=== PATIENT | male | born 2005 | race Caucasian/White ===

== ENCOUNTER 2024-12-12 15:26 | Outpatient (AMB) | payer OTHER, MEDICAID, SELFPAY ==
[2024-12-12 15:30] VITALS: BMI 23.2
--- NOTE | 2024-12-12 15:30 | MHC.OFFVIS ---
Vital Signs 12/12/24 15:30 Height 5 ft 4 in Weight 135 lb 5.821 oz BMI 23.2 BP not taken reason Patient Refused Intake Visit Reasons: Nausea and Vomiting Intake Note: Vincenzo presents in office today for nausea and vomiting. CC: Patient reports that he started having N/V in November of 2018. The first episode of vomiting happened at a restaurant when he started vomiting. Per his mother when they go out to eat sometimes chicken fingers can make him nauseous. Per his mother about once a year PT have an accident and stools are usually loose. Last time he vomited was September this year, after he began taking Pantoprazole he stopped vomiting. Integration Aide Required: No Accompanied by: Mother Allergies mite-Dermatophagoides farinae, sonia (dust mite - [place]) Allergy (Unknown, Verified 12/12/24 15:47) Unknown HPI HPI Nausea and Vomiting: Details: 19-year-old male here for initial evaluation of nausea and vomiting. He is referred by [facility]. PMX Autism Food allergy Environmental allergies * SURGICAL HISTORY * ALLERGIES * MEDITECH LABS: none TODAY'S VISIT His motehr is my pt as well. [facility] Medical History (Updated 12/12/24 @ 15:53 by KATHY Hightower) Encounter for screening for COVID-19 Surgical History (Updated 12/12/24 @ 15:44 by SY Doty) History of lingual frenulectomy H/O myringotomy Social History (Updated 12/12/24 @ 15:45 by SY Doty) Alcohol intake: never Patient Tobacco Use Status: Never used Tobacco Review of Systems Const Denies fatigue, Denies fever(s), Denies night sweats, Denies poor appetite and Denies weight loss ENT Reports Normal hearing present, Denies dental pain, Denies dysphagia, Denies hearing loss, Denies mouth pain, Denies odynophagia, Denies throat swelling, Denies tongue swelling and Reports other (Dentition adequate) Card Reports no additional complaints Resp Reports no additional complaints GI Details: Denies abdominal pain, Denies melena, Denies bloating, Denies hematochezia, Denies constipation, Denies GI cramping, Denies dysphagia, Denies excessive flatus, Denies early satiety, Reports heartburn, Reports diarrhea, Reports nausea, Denies odynophagia, Reports vomiting and Denies hematemesis Skin/Breast Denies pruritus, Denies lesions, Denies rash and Denies jaundice Neuro Reports Normal hearing present and Denies Abnormal speech present Endo Denies fatigue Aller/Immun Denies throat swelling and Denies tongue swelling Physical Exam Vital Signs: BMI result Body Mass Index 23.2 Const General: cooperative, no acute distress, well developed and well groomed Nutritional Appearance: average body habitus and well nourished Orientation/consciousness: oriented to person, oriented to place and oriented to time Limitations: behavioral limitations, No language barrier and other limitations HEENT Head: Yes normocephalic and Yes atraumatic Eyes General: appearance normal, both eyes and all related structures Pupils: Equal, round and reactive pupils present Neck Neck: Yes normal visual inspection and Yes no lymphadenopathy Thyroid: Thyroid normal Resp Effort & Inspection: normal respiratory effort and able to speak in complete sentences Auscultation: clear to auscultation bilaterally Cardio Rate: regular rate Rhythm: regular rhythm Heart sounds: Normal, physiologic split S2 sound present Peripheral pulses: radial pulses present and posterior tibial pulses present GI Inspection: No distended and No Abdominal panniculus present Palpation (GI): Soft to palpation, nontender, no guarding, not rigid and No hepatosplenomegaly present Percussion: Yes normal to percussion Auscultation: normal bowel sounds Rectal Exam - Male: Yes deferred Skin General skin exam: no rashes or lesions noted, turgor normal, skin not dry, no jaundice, No spider nevi and no striae Rashes: no rashes Nails: normal Neuro General: oriented to person, oriented to place and oriented to time Cranial nerves: Yes Equal, round and reactive pupils present and Yes Normal hearing present Speech: No Abnormal speech present Extrem General: Yes normal to inspection, No clubbing, No cyanosis and No edema Psych Appearance: grossly normal and well kempt Mental Status: other Speech and movement: Slowed speech present (Psych) Affect: normal affect Attitude: cooperative Thought process: not confabulating and Impoverished thought process present Thought content: Normal thought content present Insight: Poor insight present (Psych) Judgement: Poor judgement present (Psych) Assessment & Plan Assessment & Plan (1) GERD (gastroesophageal reflux disease): Code(s): K21.9 - Gastro-esophageal reflux disease without esophagitis Category: Medical (2) Nausea and vomiting: Code(s): R11.2 - Nausea with vomiting, unspecified Category: Medical Plan - The patient is a 19-year-old male presenting with gastrointestinal symptoms, specifically nausea and vomiting. - Episodes began on December 12, 2018, recurring every three to four months with severe nausea and vomiting. - Heartburn and reflux symptoms often accompany nausea. - Treatment with pantoprazole commenced two months ago with noted improvement. - Episodes of diarrhea occur occasionally, sometimes leading to anal discomfort. - Childhood surgeries include a frenectomy and ear tube placement due to frequent ear infections. The patient does not follow a specific diet and has no identified food allergies except for a reaction to chicken tenders from certain restaurants. Intake includes occasional fast food, preferring [employer] chicken nuggets, and swaps sugary drinks for water when possible. Pantoprazole is taken daily to manage symptoms, with no current multivitamin or supplement use. Nutritional challenges include avoiding specific chicken preparations that trigger gastrointestinal symptoms. It is good that he is improved on pantoprazole. The only thing I would add to this right now is an H pylori stool antigen test to see if this is a reversible cause of the underlying problem. Return office visit in 8 weeks Orders: Orders H pylori Ag Stool 12/12/24 K21.9 - Gastro-esophageal reflux disease without esophagitis, R11.2 - Nausea with vomiting, unspecified Medications: New pantoprazole 20 mg PO DAILY 30 tabs 6RF K21.9 - Gastro-esophageal reflux disease without esophagitis, R11.2 - Nausea with vomiting, unspecified Coding Level of Care Code New Pt Level 3 (84179) Diagnoses GERD (gastroesophageal reflux disease) K21.9 Nausea and vomiting R11.2
--- OUTSIDE RECORDS SUMMARY | 2024-12-12 15:30 | XMS_ITS | Clinical Summary ---
Author Organization [facility] Address [address] [place] [address] Phone Care Team Providers Care Hair Clipper Power Name Role Phone Alex Womack MD Primary Care Provider [phone] Allergies Active Allergy Reactions Criticality Noted Date Comments Environmental 09/06/2018 seasonal Medications fexofenadine ODT 30 MG disintegrating tablet Take 30 mg by mouth daily. Active Active Problems Problem Noted Date Diagnosed Date Allergy to food 12/11/2019 Overview (06/19/2022): Suspected, but etiology unclear. Refer to [facility] for further evaluation. Mom suspects something in chicken nuggets - has happened 4 times in different restaurants (but is fine with some other nuggets, ex. [employer]) Has Epi pen but has not needed it. Assessment & Plan (07/17/2023 10:12 AM EDT): Unsure which-has some sensitivities to foods; has seen financial health counselor in the past; recommended a follow up appointment with them Dental caries 12/02/2019 Overview (12/02/2019): 09/2018- [facility] under [place] [employer] Assessment & Plan (07/17/2023 10:12 AM EDT): Still sees dentist-last seen a couple of weeks ago Assessment & Plan (12/03/2019 1:51 PM EDT): Needs to reschedule this years appointment at [facility] cancelled d/t COVID Autism 09/06/2018 Overview (11/06/2019): 11/06/2019 Chart Review: As of last well visit 08/2017 'In Autism class at [facility]. Mom declines referral to Care Coordinators to look into potential services for pt' Assessment & Plan (07/17/2023 10:32 AM EDT): In [employer] in [place] for vocational assistance after completing [employer] [employer]. Had an IEP while in school. Referral placed for [facility] to call mom to see if she should get guardianship or not--mom says she was told it's not beneficial but I think it would be important to revisit that and consider an updated neuropsych evaluation Assessment & Plan (06/19/2022 2:34 PM EDT): Has IEP, in separate classroom Will go to [employer] after 12th grade Does [employer] [place] during the [place] Assessment & Plan (12/06/2019 10:00 AM EDT): No longer getting any in- home ASD supports. Has been in school since 10/2018. Explained RN CC role to mother and she is accepting of offer of outreach call to ensure Vincenzo has access to any and all appropriate current and future supports for his ASD. Resolved Problems Problem Noted Date Diagnosed Date Resolved Date Torticollis 12/06/2019 07/17/2023 Overview (12/06/2019): Recurrent, spring episodes of torticollis, particularly severe Spring 2019. Assessment & Plan (12/06/2019 9:56 AM EDT): Relationship to seasonal allergies suggested but unclear. Refer to [facility] Acne vulgaris 09/06/2018 07/17/2023 Assessment & Plan (12/03/2019 1:49 PM EDT): Much improved recently, with no need for daily treatment.Suggest 10% BP PRN Gastroesophageal reflux disease 09/21/2013 12/02/2019 Encounters Date Type Department Care Team Description 10/20/2024 Telephone [facility] - [address] [place] [address] Alex Womack MD Forms/questionnaires 10/09/2024 Telephone [facility] - [place] [address] [place] [address] Alex Womack MD Adult [facility]- [facility] 09/11/2024 Telephone [facility] - [place] [address] [place] [address] Alex Womack MD medical records from Last 3 Months Immunizations Immunization Administration Dates Next Due COVID-19 Pfizer, monovalent, 12+ years 2 DTaP / Hep B / IPV 01/11/2005,2004, 005 DTaP 5 06/30/2008,02/07/2006 H1N1 01/12/2009 HPV Vaccine 9 Valent 07/17/2023 Hep A, ped/adol 06/30/2008,02/07/2006 Hep B, ped/adol 2004 Hib (HbOC) 01/11/2005,2004,2004 Hib (PRP-T) 10/12/2005 IPV 06/30/2008 Influenza Split 12/21/2011 Influenza, injectable, quadrivalent 12/16/2013 Influenza, injectable, quadr ivalent, preservative free 12/03/2019,10/13/2014 Influenza, injectable, trivalent 009,01/21/2008,02/07/2006,01/11 MMR 07/27/2009,06/26/2005 Meningococcal B Trumenba 07/17/2023,06/19/2022 Meningococcal Conj (Menactra) MCV4P 02/25/2021,0 09/22/2016 Pneumococcal Conjugate 10/12/2005,2004,2004,08/24 Tdap 09/22/2016 Varicella 07/27/2009,06/26/2005 Family History Medical History Relation Name Comments Diabetes Maternal Grandfather Hyperlipidemia Maternal Grandfather Hypertension Maternal Grandfather Diabetes Maternal Grandmother Hyperlipidemia Maternal Grandmother Hypertension Maternal Grandmother Ankylosing spondylitis Mother Deonte Ricks Arthritis Mother Deonte Ricks Dental caries Mother Deonte Ricks Diabetes Paternal Grandfather Hyperlipidemia Paternal Grandfather Hypertension Paternal Grandfather Diabetes Paternal Grandmother Hyperlipidemia Paternal Grandmother Hypertension Paternal Grandmother ADD / ADHD Sister Jenny Ricks Asthma Sister Jenny Ricks Relation Name Status Comments Father Rivera Banks Alive Maternal Grandfather Maternal Grandmother Materna l grandmother: Diabetes mellitus, Hypertension Mother Deonte Ricks Alive Mother: Alive and well Other No family histo ry of *Heart Disease, Family history of *CVA/Stroke, No family history of *Sudden /[place] under 55, Family history of Asthma, Family history of *Dental caries Paternal Grandfather Paternal Grandmother Sister Jenny Ricks Alive Social History Tobacco Use Types Packs/Day Years Used Date Smoking Tobacco: Never Smokeless Tobacco: Never Alcohol Use Standard Drinks/Week Comments Never 0 (1 standard drink = 0.6 oz pur e alcohol) Hunger/Food Answer Date Recorded In the last 12 months, did y ou or your family ever eat less than you felt you should because there wasn't enough money for food? No 07/22/2024 Stable Housing Answer Date Recorded Are you worried that in the next 2 months you may not have stable housing? No 07/22/2024 Transportation Concerns Answer Date Rec orded In the last 12 months, have you or your family ever had to go without healthcare because you didn't have a way to get there? No 07/22/2024 Hazards in Home Answer Date Recorded Think about the place you li ve. Do you have problems with any of the following? Pests (mice or roaches), mold, no/not working smoke detectors, water leaks, no window guards. No 2024 Financing Utilities Answer Date Recorde d In the last 12 months, has t he electric, gas, oil, or water company threatened to shut off your services in your home? No 07/22/2024 Safety at Home Answer Date Recorded Are you or your family worried about feeling saf e in your home? No 07/22/2024 Outside Support Answer Date Recorded Do you feel that you need mo re support from other people or programs to help you care for yourself or your family? No 07/22/2024 Understanding Health Concerns Answer Da te Recorded Do you need help understandi ng your or your child's healthcare needs (diagnosis, medications, plan, etc.)? No 07/22/2024 Financing Health Concerns Answer Date R ecorded In the last 12 months, was t here a time when your child needed to see a doctor or get medications or supplies but could not because of cost? No 07/22/2024 Missing School or Work Answer Date Jarvis rded Did you or your child miss s chool or work because of a health problem that could have been avoided? No 07/22/2024 Child Education Answer Date Recorded Do you have concerns about y our/your child's learning or behavior in school, preschool, or daycare? No 07/22/2024 Sex and Gender Information Value Date Recorded Sex Assigned at Male 07/29/2024 10:04 AM EDT Legal Sex Male 5:23 PM EDT Gender Identity Male 07/29/2024 10:04 AM EDT Sexual Orientation Not on file Last Filed Vital Signs Vital Sign Reading Time Taken Comments Blood Pressure 113/67 07/22/2024 2:40 PM EDT Pulse 70 07/22/2024 2:40 PM EDT Temperature 36.8 C (98.3 F) 07/22/2024 2:40 PM EDT Respiratory Rate - - Oxygen Saturation - - Inhaled Oxygen Concentration - - Weight 60.5 kg (133 lb 6.4 oz) 07/22/2024 2:40 P M EDT Height 161.3 cm (5' 3.5 ) 07/22/2024 2:40 PM EDT Body Mass Index 23.26 07/22/2024 2:40 PM EDT Plan of Treatment Health Maintenance Due Date Last Done Comments HPV Vaccines (2 - Male 3-dos e series) 08/14/2023 07/17/2023 Influenza Vaccines (#1) 2024 12/03/19 20, 10/13/2014, 12/16/2013, Additional history exists COVID-19 Vaccine (3 - 2024-2 6 season) 2024 03/22/2021, 02/25/2021 DTaP,Tdap,and Td Vaccines (7 - Td or Tdap) 09/22/2026 09/22/2016, 06/30/2008, 02/07/2006, Additional history exists Hepatitis B Vaccines Completed 01/11/2005, 2004, 2004, Additional history exists HIB Vaccines Completed 10/12/2005, 12/15, 2004, Additional history exists Pneumococcal Vaccine Completed 10/12/2005, 01/11/2005, 2004, Additional history exists Hepatitis A Vaccines Completed 06/30/2008, 02/08/20 06 IPV Vaccines Completed 06/30/2008, 12/15, 2004, Additional history exists MMR Vaccines Completed 07/27/2009, 06/26/2005 Varicella Vaccines Completed 07/27/2009, 06/26/2005 Meningococcal Vaccine Completed 02/25/2021, 017 Men B Vaccine Completed 07/17/2023, 06/19/2022 Insurance [facility] NON PCC Member Subscriber Plan / Payer (Ef fective 2018-Present) Name:AmilcarVincenzo wick Relation to Subscriber:Self Name:AmilcarVincenzo coughlin Payer ID:Not on file Group ID:Not on file Type:Medicaid Address: [address] [place] [address] Care Teams Hair Clipper Power Relationship Specialty Start Date End Date Alex Womack MD [address] [place] [address] PCP - General Pediatrics 11/17/19
--- OUTSIDE RECORDS SUMMARY | 2024-12-12 15:30 | XMS_ITS | Clinical Summary ---
Author Organization [employer] Address [address] [facility] [address] [place] [address] Care Team Providers Care Document Imaging Specialist Name Role Phone Unavailable Primary Care Provider Unavailabl e Allergies No known active allergies Medications fexofenadine ODT (Shauna ODT) 30 MG disintegrating tablet Take 30 mg by mouth Once per day. Active Active Problems No known active problems Social History Tobacco Use Types Packs/Day Years Used Date Smoking Tobacco: Never Assessed Sex and Gender Information Value Date Recorded Sex Assigned at Male 12/12/2021 10:29 AM EDT Legal Sex Male 10:29 AM EDT Gender Identity Male 12/12/2021 10:29 AM EDT Sexual Orientation Don't know 12/12/2021 10 :29 AM EDT Last Filed Vital Signs Vital Sign Reading Time Taken Comments Blood Pressure - - Pulse - - Temperature - - Respiratory Rate - - Oxygen Saturation - - Inhaled Oxygen Concentration - - Weight 60.5 kg (133 lb 4.8 oz) 07/16/2024 1:12 P M EDT Height 165.1 cm (5' 5 ) 07/16/2024 1:12 PM EDT Body Mass Index 22.18 07/16/2024 1:12 PM EDT Plan of Treatment Upcoming Encounters Date Type Department Care Team (Late st Contact Info) Description 01/21/2025 2:30 PM EST Office Visit [facility] [address] [place] [address] Radha Au [address] [place], [place] [id number] Health Maintenance Due Date Last Done Comments Chlamydia and Gonorrhea Screening 2004 Dental X-Ray: Bitewings 2004 Dental X-Ray: Full Mouth 2004 Depression Screening 2004 HIV Screening 2004 SDOH Screening 2004 Disability Screening 2004 Alcohol/Substance Use Screening 2016 Tobacco Screening 2016 Family Planning (PISQ) 06/25/2019 Hepatitis C Screening 2022 HPV Vaccines (2 - Male 3-dose series) 08/14/2023 07/17/2023 Dental Oral Exam 09/24/2024 03/26/2024, , 05/15/2023, Additional history exists Dental Prophylaxis 09/24/2024 03/26/2024, 0 09/03/2023, 05/15/2023, Additional history exists COVID-19 Vaccine (3 - season) 2024 03/22/2021, 02/25/2021 Influenza Vaccine (#1) 2024 , 10/13/2014, 12/16/2013, Additional history exists DTaP/Tdap/Td Vaccines (7 - Td or Tdap) 09/22/2026 09/22/2016, 06/30/2008, 02/07/2006, Additional history exists Zoster Vaccines (1 of 2) 2054 RSV Patients and Patients Aged 60 years or older (1 - 1-dose 75+ series) 06/25/2079 Hepatitis B Vaccines Completed 01/11/2005, 2004, 2004, Additional history exists HIB Vaccines Completed 10/12/2005, 12/15, 2004, Additional history exists Pneumococcal Vaccine: Pediatrics (0 to 5 Years) and At-Risk Patients (6 to 49) Years Aged Out 10/12/2005, 01/11/2005, 2004, Additional history exists No longer eligible based on patient's age to complete this topic Hepatitis A Vaccines Completed 06/30/2008, 02/08/20 06 IPV Vaccines Completed 06/30/2008, 12/15, 2004, Additional history exists Meningococcal Vaccine Completed 02/25/2021, 017 Meningococcal B Vaccine Completed 07/17/2023, 06/19 RSV under 20 months Aged Out No longe r eligible based on patient's age to complete this topic Rotavirus Vaccines Aged Out No longer eligible based on patient's age to complete this topic Procedures Procedure Name Priority Date/Time Associated Diagnosis Comments Full PROPHYLAXIS - ADULT Routine 03/26/2024 8:15 AM EST PERIODIC ORAL EVALUATION - ESTABLISHED PATIENT Routine 03/26/2024 8:15 AM EST from Last 3 Months or Most Recently Relevant to Health Maintenance Insurance [facility] MEDICAID STAND CHILD
--- OUTSIDE RECORDS SUMMARY | 2024-12-12 15:30 | XMS_ITS | Encounter Summary ---
Author Organization [facility] Address [address] [place] [address] Phone Care Team Providers Care Slide Maker Name Role Phone Alex Womack MD Primary Care Provider [phone] Encounter Details Date Type Department Care Team (Late st Contact Info) Description 03/27/2010 Documentation [facility] [address] [place] [address] Family Medicine, Physician [address] [place], [place] [address] Social History Tobacco Use Types Packs/Day Years Used Date Smoking Tobacco: Never Assessed Sex and Gender Information Value Date Recorded Sex Assigned at Male 07/29/2024 10:04 AM EDT Legal Sex Male 5:23 PM EDT Gender Identity Male 07/29/2024 10:04 AM EDT Sexual Orientation Not on file documented as of this encounter Plan of Treatment Not on file documented as of this encounter Visit Diagnoses Not on filedocumented in this encounter Care Teams Slide Maker Relationship Specialty Start Date End Date Alex Womack MD [address] [facility] [place] [address] PCP - General Pediatrics 11/17/19 documented as of this encounter
--- OUTSIDE RECORDS SUMMARY | 2024-12-12 15:30 | XMS_ITS | Encounter Summary ---
Author Organization [facility] Address [address] [place] [address] Phone Care Team Providers Care Lead Project Engineer Name Role Phone Alex Womack MD Primary Care Provider [phone] Encounter Details Date Type Department Care Team (Late st Contact Info) Description 05/08/2011 Documentation [facility] Family Medicine [address] [place] [address] Family Medicine, Physician [address] [place], [place] [phone] Social History Tobacco Use Types Packs/Day Years [...] on filedocumented in this encounter Care Teams Lead Project Engineer Relationship Specialty Start Date End Date Alex Womack MD [address] [place] [address] PCP - General Pediatrics 11/17/19 documented as of this encounter
--- OUTSIDE RECORDS SUMMARY | 2024-12-12 15:30 | XMS_ITS | Encounter Summary ---
Author Organization [employer] [facility] Address [address] [facility] [address] [place] [address] Care Team Providers Care Gravedigger Name Role Phone Unavailable Primary Care Provider Unavailabl e Encounter Details Date Type Department Care Team (Late st Contact Info) Description 02/09/2022 Abstract [facility] [address] [place] [address] Donnell Guerra DMD Social History Tobacco Use Types Packs/Day Years Used Date Smoking Tobacco: Never Assessed Sex and Gender Information Value Date Recorded Sex Assigned at Male 12/12/2021 10:29 AM EDT Legal Sex Male 10:29 AM EDT Gender Identity Male 12/12/2021 10:29 AM EDT Sexual Orientation Don't know 12/12/2021 10 :29 AM EDT COVID-19 Exposure Response Date Recorded In the last 10 days, have yo u been in contact with someone who was confirmed or suspected to have Coronavirus/COVID-19? No / Unsure 02/09/2022 2:52 PM EST documented as of this encounter Plan of Treatment Upcoming Encounters Date Type Department Care Team (Late st Contact Info) Description 01/21/2025 2:30 PM EST Office Visit [facility] [address] [place] [address] Radha Au [address] [place] [address] documented as of this encounter Procedures Procedure Name Priority Date/Time Associated Diagnosis Comments 28 O SEALANT - PER TOOTH Routine 02/09/2022 12:00 AM EST 29 O SEALANT - PER TOOTH Routine 02/09/2022 12:00 AM EST 21 O SEALANT - PER TOOTH Routine 02/09/2022 12:00 AM EST 20 O SEALANT - PER TOOTH Routine 02/09/2022 12:00 AM EST 18 O SEALANT - PER TOOTH Routine 02/09/2022 12:00 AM EST 15 O SEALANT - PER TOOTH Routine 02/09/2022 12:00 AM EST 13 O SEALANT - PER TOOTH Routine 02/09/2022 12:00 AM EST 12 O SEALANT - PER TOOTH Routine 02/09/2022 12:00 AM EST 10 I SEALANT - PER TOOTH Routine 02/09/2022 12:00 AM EST 7 I SEALANT - PER TOOTH Routine 02/09/2022 12:00 AM EST 5 O SEALANT - PER TOOTH Routine 02/09/2022 12:00 AM EST 4 O SEALANT - PER TOOTH Routine 02/09/2022 12:00 AM EST 2 O SEALANT - PER TOOTH Routine 02/09/2022 12:00 AM EST 19 RICARDA COMPOSITE FILLING Routine 02/09/2022 12:00 AM EST 14 LO COMPOSITE FILLING Routine 02/09/2022 12:00 AM EST 8 SASHA COMPOSITE FILLING Routine 02/09/2022 12:00 AM EST 30 O COMPOSITE FILLING Routine 02/09/2022 12:00 AM EST 31 O COMPOSITE FILLING Routine 02/09/2022 12:00 AM EST 3 LO COMPOSITE FILLING Routine 02/09/2022 12:00 AM EST documented in this encounter Visit Diagnoses Not on filedocumented in this encounter
--- OUTSIDE RECORDS SUMMARY | 2024-12-12 15:30 | XMS_ITS | Encounter Summary ---
Author Organization [facility] Address [address] [place] [address] Phone Care Team Providers Care Casing Operator Name Role Phone Alex Womack MD Primary Care Provider [phone] Encounter Details Date Type Department Care Team (Late st Contact Info) Description 12/22/2011 Documentation [facility] [place] Family Medicine [address] [place] [address] Family Medicine, Physician [address] [place], [place] [address] Social History Tobacco Use Types Packs/Day Years [...] on filedocumented in this encounter Care Teams Casing Operator Relationship Specialty Start Date End Date Alex Womack MD [address] [facility] [address] PCP - General Pediatrics 11/17/19 documented as of this encounter
--- OUTSIDE RECORDS SUMMARY | 2024-12-12 15:30 | XMS_ITS | Encounter Summary ---
Author Organization [facility] Address [address] [place] [address] Phone Care Team Providers Care Reduction Furnace Operator Name Role Phone Alex Womack MD Primary Care Provider [phone] Encounter Details Date Type Department Care Team (Late st Contact Info) Description 09/28/2016 Conversion Encounter [facility] [address] [place] [address] Social History Tobacco Use Types Packs/Day Years [...] on filedocumented in this encounter Care Teams Reduction Furnace Operator Relationship Specialty Start Date End Date Alex Womack MD [address] [place] [address] PCP - General Pediatrics 11/17/19 documented as of this encounter
--- OUTSIDE RECORDS SUMMARY | 2024-12-12 15:30 | XMS_ITS | Encounter Summary ---
Author Organization [facility] Address [address] [place] [address] Phone Care Team Providers Care Aircraft Navigator Name Role Phone Alex Womack MD Primary Care Provider [phone] Encounter Details Date Type Department Care Team (Late st Contact Info) Description 12/16/2013 Documentation [facility] [place] Family Medicine [address] [place] [address] Family Medicine, Physician [address] [place], [place] [address] Social History Tobacco Use Types Packs/Day Years [...] on filedocumented in this encounter Care Teams Aircraft Navigator Relationship Specialty Start Date End Date Alex Womack MD [address] [facility] [place] [address] PCP - General Pediatrics 11/17/19 documented as of this encounter
--- OUTSIDE RECORDS SUMMARY | 2024-12-12 15:30 | XMS_ITS | Encounter Summary ---
Author Organization [facility] Address [address] [place] [address] Phone Care Team Providers Care Tie Fastener Name Role Phone Alex Womack MD Primary Care Provider [phone] Encounter Details Date Type Department Care Team (Late st Contact Info) Description 09/15/2009 Documentation [facility] Family Medicine [address] [place] [address] Family Medicine, Physician [address] [place], [place] [phone] Social History Tobacco Use Types Packs/Day Years [...] on filedocumented in this encounter Care Teams Tie Fastener Relationship Specialty Start Date End Date Alex Womack MD [address] [facility] [place] [address] PCP - General Pediatrics 11/17/19 documented as of this encounter
== END 2024-12-12 16:05 | disposition home or self-care (01) ==
LOC: HO.HGI 15:27
PROVIDERS: PCP Pediatrics; Visit Provider Nurse Practitioner
DX: K21.9 Gastro-esophageal reflux disease without esophagitis (principal); R11.2 Nausea with vomiting, unspecified
CPT/HCPCS: 99203